=== PATIENT | female | born 1985 ===

== ENCOUNTER 2019-05-16 05:01 | Inpatient (IN) | payer BC, OTHER ==
[~2019-05-16] VITALS: Ht 167.6 cm; Wt 76.3 kg
[2019-05-16] MEDS ORDERED: OXYTOCIN 30U/ 0.9% NaCL 500ML 500 ML IV ONE (05:08)
[2019-05-16] MEDS ORDERED: NEWBORN KIT ONE (05:10)
[2019-05-16] MEDS ORDERED: LIDOCAINE 1%, 20ML ONE (05:10)
[2019-05-16] MEDS ORDERED: MISOPROSTOL 200 MCG TABLET ONE (05:11)
[2019-05-16 05:22] VITALS: BP 122/80
[2019-05-16] MEDS ORDERED: CALCIUM CARBONATE 500 MG TAB.CHEW PO PRN (05:30)
[2019-05-16] MEDS ORDERED: TERBUTALINE 1 MG/ML, 1ML SQ PRN (05:30)
[2019-05-16] MEDS ORDERED: TERBUTALINE 1 MG/ML, 1ML IVPush PRN (05:30)
[2019-05-16] MEDS ORDERED: FENTANYL PF 100 MCG/2ML IV PRN (05:30)
[2019-05-16] MEDS ORDERED: ONDANSETRON 2MG/ML, 2ML IVPush PRN (05:30)
[2019-05-16] MEDS ORDERED: FENTANYL PF 100 MCG/2ML IVPush PRN (05:30)
[2019-05-16] MEDS ORDERED: PREN-3 PO (05:34)
[2019-05-16 05:44] LABS: BASOPHILS # (AUTO) 0.03 x10^3/uL (0-0.1); BASOPHILS % (AUTO) 1 % (0-1); EOSINOPHILS # (AUTO) 0.01 x10^3/uL (0-0.4); EOSINOPHILS % (AUTO) 0 % (1-7); LYMPHOCYTES # (AUTO) 1.36 x10^3/uL (1-3.4); LYMPHOCYTES % (AUTO) 22 % (22-44); MD NO; MEAN CORPUSCULAR HEMOGLOBIN 25.4 pg (27.0-34.8); MEAN CORPUSCULAR HGB CONC 32.1 g/dL (32.4-35.8); MEAN PLATELET VOLUME 9.2 fL (7.4-10.4); MONOCYTES # (AUTO) 0.42 x10^3/uL (0.2-0.8); MONOCYTES % (AUTO) 7 % (2-9); NEUTROPHILS # (AUTO) 4.26 x10^3/uL (1.8-6.8); NEUTROPHILS % (AUTO) 70 % (42-75); PLATELET COUNT 162 x10^3/uL (130-400); RED BLOOD COUNT 4.27 x10^6/uL (3.82-5.3); RED CELL DISTRIBUTION WIDTH 17.7 % (9.6-15.2)
[2019-05-16] MEDS: LACTATED RINGERS 1,000 ML IV SCH ×3 (05:53→13:45)
[2019-05-16] MEDS ORDERED: OXYTOCIN 30U/ 0.9% NaCL 500ML 500 ML IV PRN (06:04)
[2019-05-16] MEDS ORDERED: OXYTOCIN 30U/ 0.9% NaCL 500ML 500 ML ONE ×2 (06:06→13:10)
[2019-05-16] MEDS ORDERED: PENICILLIN GK 5,000,000 UNITS in DEXTROSE 5% 100 ML IVPB ONE (06:30)
[2019-05-16] MEDS ORDERED: FLU VACC QS2019-20 36MOS UP/PF 0.5 ML IM-VACC ONE (06:30)
[2019-05-16] MEDS ORDERED: FENTANYL/BUPIV./NS/PF 250 ML EPIDCONT SCH (07:31)
[2019-05-16] MEDS ORDERED: FENTANYL PF 500 MCG, BUPIVACAINE/PF 0.5%, 30ML 62.5 ML in SODIUM CHLORIDE 0.9% 177.5 ML EPIDCONT SCH ×2 (08:00→08:30)
[2019-05-16] MEDS ORDERED: BUPIVACAINE 0.25% ONE (08:43)
[2019-05-16] MEDS ORDERED: PENICILLIN GK 2,500,000 UNITS in DEXTROSE 5% 100 ML IVPB SCH (10:30)
[2019-05-16] MEDS ORDERED: ONDANSETRON 2MG/ML, 2ML IV PRN (13:00)
[2019-05-16] MEDS ORDERED: OXYcodone IR 5MG TABLET PO PRN (13:00)
[2019-05-16] MEDS ORDERED: MISOPROSTOL 200 MCG TABLET PR PRN (13:00)
[2019-05-16] MEDS ORDERED: OXYcodone/APAP 5/325MG TABLET PO PRN (13:00)
[2019-05-16] MEDS ORDERED: SIMETHICONE 80 MG CHEW TAB PO PRN (13:00)
[2019-05-16] MEDS ORDERED: ACETAMINOPHEN 325 MG TABLET PO PRN (13:00)
[2019-05-16] MEDS: OXYTOCIN 30U/ 0.9% NaCL 500ML 500 ML IV SCH ×2 (13:42→22:35)
[2019-05-16] MEDS ORDERED: IBUPROFEN 600 MG TABLET ONE (14:29)
[2019-05-16] MEDS: IBUPROFEN 600 MG TABLET PO PRN ×2 (14:31→23:08)
[2019-05-16 14:50] VITALS: BP 131/81
[2019-05-16] MEDS ORDERED: DIPH,PERTUSS(ACELL),TET VAC/PF NC IM-VACC ONE (19:30)
[2019-05-16 19:35] VITALS: BP 119/75
[2019-05-16 20:32] LABS: BASOPHILS # (AUTO) 0.03 x10^3/uL (0-0.1); BASOPHILS % (AUTO) 0 % (0-1); EOSINOPHILS # (AUTO) 0.01 x10^3/uL (0-0.4); EOSINOPHILS % (AUTO) 0 % (1-7); LYMPHOCYTES # (AUTO) 1.31 x10^3/uL (1-3.4); LYMPHOCYTES % (AUTO) 13 % (22-44); MD NO; MEAN CORPUSCULAR HEMOGLOBIN 25.8 pg (27.0-34.8); MEAN CORPUSCULAR VOLUME 80.7 fL (80-100); MEAN PLATELET VOLUME 9.6 fL (7.4-10.4); MONOCYTES # (AUTO) 0.57 x10^3/uL (0.2-0.8); MONOCYTES % (AUTO) 6 % (2-9); NEUTROPHILS # (AUTO) 7.93 x10^3/uL (1.8-6.8); NEUTROPHILS % (AUTO) 81 % (42-75); PLATELET COUNT 166 x10^3/uL (130-400); RED BLOOD COUNT 4.14 x10^6/uL (3.82-5.3); RED CELL DISTRIBUTION WIDTH 17.8 % (9.6-15.2)
[2019-05-16 23:27] VITALS: BP 115/72
[2019-05-17 04:50] VITALS: BP 113/75
[2019-05-17 08:22] VITALS: BP 127/81
[2019-05-17] MEDS: DOCUSATE 100 MG CAPSULE PO PRN (08:35)
[2019-05-17] MEDS: PRENATAL VIT/IRON/FA 1 EACH TABLET PO SCH (08:35)
[2019-05-17] MEDS: IBUPROFEN 600 MG TABLET PO PRN (08:35)
[2019-05-17] MEDS: LACTATED RINGERS 1,000 ML IV SCH ×3 (10:00→20:00)
[2019-05-17] MEDS: OXYTOCIN 30U/ 0.9% NaCL 500ML 500 ML IV SCH ×2 (10:14→18:35)
[2019-05-17 12:08] VITALS: BP 121/79
[2019-05-17 21:00] VITALS: BP 113/75
[2019-05-18] MEDS: OXYTOCIN 30U/ 0.9% NaCL 500ML 500 ML IV SCH (04:35)
[2019-05-18] MEDS: LACTATED RINGERS 1,000 ML IV SCH (06:00)
[2019-05-18 08:00] VITALS: BP 120/84
[2019-05-18] MEDS: IBUPROFEN 600 MG TABLET PO PRN (09:26)
[2019-05-18] MEDS: PRENATAL VIT/IRON/FA 1 EACH TABLET PO SCH (09:26)
[2019-05-18] MEDS: DOCUSATE 100 MG CAPSULE PO PRN (09:26)
[2019-05-18] MEDS ORDERED: IBUP-1222 PO (09:27)
== END 2019-05-18 14:05 | disposition home or self-care (01) | DRG 807 ==
LOC: LDIP 05:01 → 2NW 14:41
PROVIDERS: ADMIT Obstetrics & Gynecology; ATTEND Obstetrics & Gynecology
PROC: 10E0XZZ Delivery of Products of Conception, External Approach (ICD-10-PCS; principal; 2019-05-16)
PROC: 0HQ9XZZ Repair Perineum Skin, External Approach (ICD-10-PCS; 2019-05-16)
PROC: 3E0234Z Introduction of Serum, Toxoid and Vaccine into Muscle, Percutaneous Approach (ICD-10-PCS; 2019-05-17)
DX: O99.824 Streptococcus B carrier state complicating childbirth (principal); Z37.0 Single live birth; O24.420 Gestational diabetes mellitus in childbirth, diet controlled; O70.0 First degree perineal laceration during delivery; Z3A.39 39 weeks gestation of pregnancy; Z23 Encounter for immunization
CPT/HCPCS: 36415; 82947; 85025; 86850; 86900; 90686; 90715; G0378; J2540; J2590; J7120